=== PATIENT | female | born 1980 ===

== ENCOUNTER 2017-08-03 19:14 | Emergency (ER) | payer MEDICAID ==
[2017-08-03 19:27] VITALS: TEMP 98.2; O2SAT 100
--- NOTE | 2017-08-03 19:36 | C.PDOC ---
History Of Present Illness Patient came in due to episodes of left sided headache. Hx of chronic migraine. Has not taken any medication for the headache. Chief Complaint (Nursing): Headache History Per: Patient History/Exam Limitations: no limitations Onset/Duration Of Symptoms: Days Current Symptoms Are (Timing): Still Present Severity: Moderate Pain Scale Rating Of: 4 Quality: Dull, "Pain" Preceeding Symptoms: None Associated Symptoms: Nausea. denies: Photophobia, Blurred Vision, Vomiting, Extremity Weakness Recent travel outside of the [place]: No Additional History Per: Patient Past Medical History Vital Signs: Last Vital Signs Temp 98.2 F 08/03/17 19:23 Pulse 77 08/03/17 19:23 Resp 17 08/03/17 19:23 BP 110/72 08/03/17 19:23 Pulse Ox 100 08/03/17 19:40 - Medical History PMH: Back Problems, Migraine Surgical History: No Surg Hx - [facility] DPT ADMINISTRATION (07/15/15) Family History: States: Unknown Family Hx - Social History Hx Tobacco Use: No Hx Alcohol Use: Yes Hx Substance Use: No - Immunization History Hx Tetanus Toxoid Vaccination: No Hx Influenza Vaccination: No Hx Pneumococcal Vaccination: No Review Of Systems Constitutional: Negative for: Fever, Chills, Sweats, Weakness, Malaise Eyes: Negative for: Pain, Vision Change, Conjunctivae Inflammation ENT: Negative for: Ear Pain, Ear Discharge, Nose Pain, Nose Discharge Cardiovascular: Negative for: Chest Pain, Palpitations, Orthopnea, Paroxysmal Noc. Dyspnea Respiratory: Negative for: Cough, Shortness of Breath, Hemoptysis Gastrointestinal: Positive for: Nausea. Negative for: Vomiting, Abdominal Pain , Diarrhea Genitourinary: Negative for: Dysuria, Frequency, Incontinence Musculoskeletal: Negative for: Neck Pain, Shoulder Pain, Arm Pain Skin: Negative for: Rash, Lesions Neurological: Positive for: Headache. Negative for: Weakness, Numbness, Incoordination, Change in Speech, Confusion, Seizures, Altered Mental Status Psych: Negative for: Anxiety, Depression, Psychosis, Suicidal ideation Physical Exam - Physical Exam Appears: No Acute Distress Skin: Normal Color, Warm, Dry Eye(s): bilateral: Normal Inspection, PERRL, EOMI Oral Mucosa: Moist Throat: Normal Neck: Normal, Normal ROM, No Trachea Midline Cardiovascular: Rhythm Regular, No Edema, No Murmur, No JVD Respiratory: Normal Breath Sounds Gastrointestinal/Abdominal: Normal Exam Back: Normal Inspection Extremity: Normal ROM Neurological/Psych: Oriented x3, Normal Speech, Normal Cognition, Normal Cranial Nerves, No Cerebellar Signs, Normal Motor, Normal Sensation, No Dysarthria, No Romberg Gait: Steady Other Neurological Findings: No Facial Palsy ED Course And Treatment O2 Sat by Pulse Oximetry: 100 Disposition - Disposition Referrals: Clinic,Med Surg [Non-Staff] - Disposition: HOME/ ROUTINE Disposition Time: 20:37 Condition: IMPROVED Prescriptions: SUMAtriptan [Imitrex] 50 mg PO Q2 #4 tab Instructions: Migraine Headache (ED) Forms: [facility] (Kiswahili) - POA Present On Arrival: None - Clinical Impression Clinical Impression: Migraine
[2017-08-03 20:48] VITALS: BP 112/74; PULSE 86; RESP 16
== END 2017-08-03 20:47 | disposition home or self-care (01) ==
LOC: SUPCPDRO 19:14 → C.ER 19:14
DX: G43.909 Migraine, unspecified, not intractable, without status migrainosus (principal)
CPT/HCPCS: 84703; 96372; 99284; J3030

== ENCOUNTER 2018-03-22 06:56 | Emergency (ER) | payer MEDICAID, OTHER ==
[2018-03-22 07:13] VITALS: O2SAT 100
[2018-03-22] MEDS ORDERED: Sodium Chloride 0.9% 1,000 ML IV ONE (07:43)
[2018-03-22 08:23] VITALS: BP 114/65; PULSE 72; RESP 16; TEMP 98.2
--- NOTE | 2018-03-22 08:38 | C.PDOC ---
History Of Present Illness 37yo female with history of migraines, presents to ED with complaints of a right sided, pressure like headache, associated with photophobia and nausea. She states her current presentation is similar to her prior headaches,. Patient states her migraine episodes have become more frequent. She is currently taking Imitrex and Ibuprofen for pain with transient relief. She denies any weakness, numbness, vision loss. No other complaints. Time Seen by Provider: 03/22/18 07:35 Chief Complaint (Nursing): Headache History Per: Patient History/Exam Limitations: no limitations Onset/Duration Of Symptoms: Days (3) Current Symptoms Are (Timing): Still Present Quality: Pressure, "Pain" Associated Symptoms: Photophobia. denies: Blurred Vision, Extremity Weakness Additional History Per: Patient Past Medical History Reviewed: Historical Data, Nursing Documentation, Vital Signs Vital Signs: Last Vital Signs Temp 98.2 F 03/22/18 08:23 Pulse 72 03/22/18 08:23 Resp 16 03/22/18 08:23 BP 114/65 03/22/18 08:23 Pulse Ox 100 03/22/18 13:53 - Medical History PMH: Back Problems, Migraine Surgical History: No Surg Hx - [facility] Procedures DPT ADMINISTRATION (07/15/15) Family History: States: Unknown Family Hx - Social History Hx Tobacco Use: No Hx Alcohol Use: Yes Hx Substance Use: No - Immunization History Hx Tetanus Toxoid Vaccination: Yes Hx Influenza Vaccination: (unk) Hx Pneumococcal Vaccination: No Review Of Systems Except As Marked, All Systems Reviewed And Found Negative. Constitutional: Negative for: Fever, Chills Eyes: Negative for: Vision Change Gastrointestinal: Positive for: Nausea Neurological: Positive for: Headache. Negative for: Weakness, Numbness, Dizziness Physical Exam - Physical Exam Appears: Non-toxic, No Acute Distress Skin: Warm, Dry Head: Atraumatic, Normacephalic Eye(s): bilateral: Normal Inspection, PERRL, EOMI Neck: Normal ROM, Supple Chest: Symmetrical Cardiovascular: Rhythm Regular, No Murmur Respiratory: Normal Breath Sounds, No Wheezing Gastrointestinal/Abdominal: Normal Exam, Soft Back: Normal Inspection Extremity: Bilateral: Atraumatic, Normal Color And Temperature, Normal ROM Neurological/Psych: Oriented x3, Normal Speech, Normal Motor, Normal Sensation Gait: Steady ED Course And Treatment O2 Sat by Pulse Oximetry: 100 (RA) Pulse Ox Interpretation: Normal Medical Decision Making Medical Decision Making: Impression: Headache Plan: * IV NS * Toradol * Reglan * POC Rn informs me patient does not want IV and prefers IM or oral medication. Change order to oral Reglan On reassessment, patient is resting comfortably, and reports pain has improved. She is asking for Rx and work note. Patient has no neurologic deficit or nuchal rigidity. Patient was instructed to follow up with physician/clinic in 1-2 days. Disposition Counseled Patient/Family Regarding: Diagnosis, Need For Followup, Rx Given - Disposition Referrals: Ilan Zhao MD [Staff Provider] - Disposition: HOME/ ROUTINE Disposition Time: 08:22 Condition: STABLE Additional Instructions: Follow up with the clinic in 2-5 days for further evaluation. Recommend consult with neurology. Take medications as prescribed. Return to the emergency department at any time if symptoms persist or worsen. Prescriptions: Acetaminophen/Butalbital/Caf [Fioricet] 1 tab PO TID PRN #20 tab PRN Reason: Headache Instructions: Migraine Headache (DC) Forms: [employer] (Colombian), Work Excuse - POA Present On Arrival: None - Clinical Impression Clinical Impression: Migraine - PA / EDI CONSULTANT / Resident Statement MD/DO has reviewed & agrees with the documentation as recorded. - Scribe Statement The provider has reviewed the documentation as recorded by the Scribe (Darline Call) Provider Attestation: All medical record entries made by the Scribe were at my direction and personally dictated by me. I have reviewed the chart and agree that the record accurately reflects my personal performance of the history, physical exam, medical decision making, and the department course for this patient. I have also personally directed, reviewed, and agree with the discharge instructions and disposition.
== END 2018-03-22 08:33 | disposition home or self-care (01) ==
LOC: C.ER 06:56
DX: G43.909 Migraine, unspecified, not intractable, without status migrainosus (principal)
CPT/HCPCS: 96372; 99285; J1885